=== PATIENT | female | born 1985 | race Hispanic/Latino ===

== ENCOUNTER 2017-09-15 05:04 | Emergency (ER) | payer OTHER ==
[2017-09-15] MEDS ORDERED: Promethazine HCl 25 MG/ML VIAL ONE (05:41)
[2017-09-15] MEDS ORDERED: Sodium Chloride 0.9% 100 ML ONE (05:41)
[2017-09-15] MEDS ORDERED: Sodium Chloride 0.9% 1,000 ML ONE (05:41)
[2017-09-15] MEDS ORDERED: Ketorolac Tromethamine 30 MG/ML VIAL ONE (05:41)
== END 2017-09-15 06:50 | disposition home or self-care (01) ==
LOC: NAV ERS 05:04
DX: R51 Headache (principal); I10 Essential (primary) hypertension; F17.210 Nicotine dependence, cigarettes, uncomplicated
CPT/HCPCS: 96361; 96365; 96375; 99406; J1885; J2550; J7050

== ENCOUNTER 2019-09-29 18:54 | Emergency (ER) | payer OTHER, SELFPAY ==
[2019-09-29] MEDS ORDERED: traMADol HCl 50 MG TAB ONE (19:36)
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
== END 2019-09-29 20:34 | disposition home or self-care (01) ==
LOC: NAV ERS 18:54
DX: S39.012A Strain of muscle, fascia and tendon of lower back, initial encounter (principal); S16.1XXA Strain of muscle, fascia and tendon at neck level, initial encounter; S29.012A Strain of muscle and tendon of back wall of thorax, initial encounter; S40.012A Contusion of left shoulder, initial encounter; F17.210 Nicotine dependence, cigarettes, uncomplicated; V47.5XXA Car driver injured in collision with fixed or stationary object in traffic accident, initial encounter
CPT/HCPCS: 72125; 72128; 72131; L0120

== ENCOUNTER 2019-10-03 12:11 | Emergency (ER) | payer OTHER, SELFPAY ==
[2019-10-04 17:13] LABS: SARS-CoV-2 MS2 Positive; SARS-CoV-2 N Gene Positive; SARS-CoV-2 S Gene Positive; SARS-CoV-2 orf1ab Positive
== END 2019-10-03 13:14 | disposition home or self-care (01) ==
LOC: NAV ERS 12:11
DX: U07.1 COVID-19 (principal); F17.210 Nicotine dependence, cigarettes, uncomplicated
CPT/HCPCS: 87635; 87804; 99283; U0003

== ENCOUNTER 2019-12-14 22:50 | Emergency (ER) | payer OTHER, SELFPAY ==
[2019-12-16 12:27] LABS: SARS-CoV-2 MS2 Positive; SARS-CoV-2 N Gene Negative; SARS-CoV-2 S Gene Negative; SARS-CoV-2 by NAA Not Detected (NotDetected); SARS-CoV-2 orf1ab Negative
== END 2019-12-14 23:40 | disposition home or self-care (01) ==
LOC: NAV ERS 22:50
DX: R05 Cough (principal); R50.9 Fever, unspecified; Z20.828 Contact with and (suspected) exposure to other viral communicable diseases; Z71.6 Tobacco abuse counseling; F17.210 Nicotine dependence, cigarettes, uncomplicated
CPT/HCPCS: 87635; 99406; U0003

== ENCOUNTER 2025-03-30 02:15 | Emergency (ER) | payer SELFPAY | END 2025-03-30 03:20 | disposition home or self-care (01) | LOC: NAV ERS 02:15 | DX: L23.7 Allergic contact dermatitis due to plants, except food (principal); F17.210 Nicotine dependence, cigarettes, uncomplicated | CPT/HCPCS: 96372; 99282; J1010 ==

== ENCOUNTER 2025-04-10 09:43 | Emergency (ER) | payer SELFPAY | END 2025-04-10 11:38 | disposition home or self-care (01) | LOC: NAV ERS 09:43 | DX: L30.8 Other specified dermatitis (principal); F17.210 Nicotine dependence, cigarettes, uncomplicated | CPT/HCPCS: 99282 ==

== ENCOUNTER 2025-04-12 03:39 | Emergency (ER) | payer BC, SELFPAY ==
[2025-04-12] MEDS ORDERED: diphenhydrAMINE 25 MG CAP ONE (04:18)
== END 2025-04-12 04:23 ==
LOC: NAV ERS 03:39
DX: R21 Rash and other nonspecific skin eruption (principal); F17.210 Nicotine dependence, cigarettes, uncomplicated
CPT/HCPCS: 99282